=== PATIENT | male | born 1995 | race African-American/Black ===

== ENCOUNTER 2020-07-03 17:28 | Emergency (ER) | payer OTHER ==
[~2020-07-03] VITALS: Ht 175.3 cm; Wt 89.1 kg
[2020-07-03] MEDS ORDERED: DOXYCYCLINE HYCLATE 100MG TABLET PO ONE (18:30)
[2020-07-03] MEDS ORDERED: LIDOCAINE 1% SDV 5ML VIAL DILUENT ONE (18:30)
[2020-07-03] MEDS ORDERED: cefTRIAXone 500MG VIAL (J0696 PER 250MG) IM ONE (18:30)
[2020-07-03] MEDS ORDERED: DOXY100C37 PO (18:36)
[2020-07-03 19:36] VITALS: BP 135/80
[2020-07-03 19:52] LABS: CHLAMYDIA DNA AMPLIFICATION NEGATIVE (NEGATIVE); GC DNA AMPLIFICATION NEGATIVE (NEGATIVE)
== END 2020-07-03 20:30 | disposition home or self-care (01) ==
LOC: M ED 17:28
DX: Z20.2 Contact with and (suspected) exposure to infections with a predominantly sexual mode of transmission (principal)
CPT/HCPCS: 81001; 87491; 87591; 96372; 99284; J0696